=== PATIENT | female | born 1965 | race Caucasian/White ===

== ENCOUNTER 2024-06-17 13:57 | Observation (INO) ==
--- NOTE | 2024-06-17 14:12 | Emergency Department Note ---
HPI - General Adult General Chief complaint: Upper Respiratory Infection Stated complaint: Shortness of Breath, Wheezing Time Seen by Provider: 06/17/24 14:05 Source: patient Mode of arrival: walk-in Limitations: no limitations History of Present Illness HPI narrative: This is a 59 year old female patient that presents to the ER with c/o cough, wheezing and SOB with a hx of COPD. Patient states she was on antibiotics and steroids a couple weeks ago and saw her PCP for the same this week and was given allergy medication. Patient denies any chest pain, back pain, abdominal pain, fever, chills, numbness, tingling, weakness or N/V/D Exacerbating factors: Reports none Associated symptoms: Reports cough and shortness of breath Treatments prior to arrival: Reports none Related Data Home Medications Medication Instructions Recorded Confirmed albuterol sulfate 90 mcg/actuation 2 puff inhalation Q4H PRN 10/25/23 02/13/24 aerosol inhaler (Ventolin HFA) shortness of breath or wheezing fluticasone 250 mcg-salmeterol 50 1 inh inhalation BID 01/16/24 02/13/24 mcg/dose blistr powdr for inhalation (Advair Diskus) Previous Rx's Medication Instructions Recorded acetaminophen 325 mg tablet 650 mg (2 x 325 mg) PO Q4H PRN 02/17/24 Pain #30 tabs budesonide 0.5 mg/2 mL suspension 1 mg (4 mL) inhalation RBID 02/17/24 for nebulization pneumonia #4 mL benzonatate 200 mg capsule 200 mg PO BID PRN cough #7 caps 04/30/24 prednisone 20 mg tablet 20 mg PO DAILY SOB #5 tabs 04/30/24 Allergies Allergy/AdvReac Type Severity Reaction Status Date / Time No Known Drug Allergies Allergy Verified 06/17/24 14:16 Review of Systems Status of ROS 10 or more systems reviewed and unremark able except as noted in history and below Constitutional Denies: fever, chills, change in weight, fatigue, malaise or night sweats Eyes Denies: change in vision, blurry vision, blind spots or light sensitivity Ears, nose, mouth, and throat Denies: throat pain, neck pain, throat swelling, difficulty swallowing, hoarseness, mouth pain or swelling of lips/tongue Cardiovascular Reports: shortness of breath with exertion; Denies: chest pain, palpitations, edema, swelling of feet/ankles, lightheadedness, shortness of breath when lying down, leg pain with exertion or bluish discoloration of hands/feet Respiratory Reports: shortness of breath, cough, wheezing and chest congestion; Denies: stridor, pain on inspiration, change in phlegm color or coughing up blood Gastrointestinal Denies: abdominal pain, nausea, vomiting, coffee grounds in vomit, heartburn, diarrhea, constipation, bloating, difficulty swallowing, feeling full early, change in bowel habits, painful bowel movements or rectal pain Genitourinary Denies: painful urination, urinary frequency, urinary urgency, urinary incontinence, blood in urine, difficulty voiding, painful menstruation, vaginal bleeding, irregular period or change in menstrual flow Musculoskeletal Denies: back pain, neck pain, extremity pain, extremity swelling, joint pain or limited range of motion Integumentary/Breast Denies: rash, itching, redness, skin pain, skin tenderness, skin swelling or sores Neurological Denies: headache, numbness in extremities, weakness in extremities, lack of coordination, dizziness or vertigo Psychiatric Denies: anxiety, mood swings, panic attacks, change in sleep pattern, hopelessness or loss of interest Endocrine Denies: excessive urination, excessive thirst, fatigue, cold intolerance, excessive sweating or flushing Hematologic/Lymphatic Denies: easy bruising, easy bleeding or enlarged lymph nodes Allergic/Immunologic Denies: hives, throat swelling, tongue swelling, facial swelling, wheezing or itchy eyes PFSH PFSH Medical History Hypertension On home O2 Bronchitis COPD (chronic obstructive pulmonary disease) Asthma Surgical History Hx of tubal ligation History of cholecystectomy Social History Smoking status: never smoker Within the past year, how often did you have a drink containing alcohol: never Score interpretation: A score less than 3 is consistent with normal alcohol consumption. Non-prescribed substance use: denies use Problems where you live: no known problems Highest level of school completed/degree received: decline to answer Feel stressed/tense/nervous/anxious/difficulty sleeping: not at all Due to disability, difficulty making decisions: No Exam Constitutional: normal general appearance and no apparent distress Vital Signs - 24 hr 06/17/24 14:05 06/17/24 14:27 Temperature 98.7 F Pulse Rate 96 H Respiratory Rate 18 Blood Pressure 166/79 Pulse Oximetry 95 96 Oxygen Delivery Me thod Room Air HENMT: normocephalic, head/scalp atraumatic, hearing grossly normal bilaterally, external ears normal, EACs normal, nasal mucous membranes normal, external nose normal, oral mucous membranes normal and oropharynx normal Eyes: PERRL, EOMs intact bilaterally, conjunctivae normal and no scleral icterus Neck/C-Spine: visual inspection normal and trachea midline Lymph: no lymphadenopathy noted Chest: inspection of chest normal and palpation of chest normal Respiratory: breath sounds equal bilaterally, normal respiratory effort, clear to auscultation bilaterally, no wheezes, no rales, no retractions, no use of accessory muscles and chest percussion normal Cardiovascular: normal heart rate noted, regular rhythm noted, no gallop, no rub, no murmur, no JVD, no clicks, peripheral pulses 2+ throughout and no additional abnormal heart sounds Gastrointestinal: abdomen normal to inspection, abdomen soft to palpation, nontender to palpation, nontender to percussion, nondistended, normoactive bowel sounds, no hepatosplenomegaly, no masses, no pulsatile mass, no ascites and no hernia Genitourinary: no CVA tenderness Back/Pelvis: spine normal to inspection Extremities: normal to inspection, normal to palpation, no tenderness, full ROM, no joint enlargement and no deformity Neurology: cold saw operator II-XII intact, no movement abnormality noted, no focal motor deficit noted, no sensory deficits noted, gait normal, speech normal, coordination normal, no pronator drift noted, no fasciculations noted and GCS normal Psychiatry: mental status grossly normal, oriented x3, thought process normal, cooperative and affect normal Skin: skin color normal Course Course Hospital Course: 1452: walking O2 sats 91-92%RA 1534: due to the need for O2 to keep O2 sats greater than 92% will admit patient to the hospital. VSS, no s/s of acute distress noted Vital Signs Vital signs: Vital Signs Temperature 98.7 F 06/17/24 14:05 Pulse Rate 96 H 06/17/24 14:05 Respiratory Rate 18 06/17/24 14:05 Blood Pressure 166/79 06/17/24 14:05 Pulse Oximetry 95 06/17/24 14:05 Oxygen Delivery Method Room Air 06/17/24 14:05 Temperature 98.7 F 06/17/24 14:05 Pulse Rate 96 H 06/17/24 14:05 Respiratory Rate 18 06/17/24 14:05 Blood Pressure 166/79 06/17/24 14:05 Pulse Oximetry 96 06/17/24 14:27 Oxygen Delivery Method Room Air 06/17/24 14:05 Medical Decision Making Differential Diagnosis Differential Diagnosis: viral illness, URI, bronchitis Medical Records Medical records reviewed: Yes I reviewed the patient's medical records Lab Data Lab results reviewed: Yes I reviewed the patient's lab results Labs: Lab Results 06/17/24 Range/Units 14:30 WBC 13.3 H (4.3-9.3) K/uL RBC 5.1 (4.00-5.50) M/uL Hgb 10.4 L (12.5-15.8) gm/dL Hct 33.6 L (35.9-46.7) % MCV 66.5 L (81.0-93.7) fl MCH 20.6 L (27.6-32.2) pg MCHC 31.0 L (33.1-35.3) g/dl RDW 18.7 H (11.4-14.2) % Plt Count 275 (152-353) K/uL MPV 7.6 (6.9-10.8) fl Gran % 72.6 H (47.8-71.3) % Lymph % (Auto) 15.8 L (20.0-43.0) % [place] % (Auto) 8.4 (3.6-9.8) % Eos % (Auto) 2.4 (0.4-2.8) % Baso % (Auto) 0.8 (0.1-0.85) Lymph # (Auto) 2.1 (1.1-3.1) [place] # (Auto) 1.1 (1.1-3.1) Eos # (Auto) 0.3 H (0.0-0.2) Baso # (Auto) 0.1 (0.0-0.1) Absolute Gran (auto) 9.7 H (2.3-6.0) D-Dimer 209 (100-600) ng/mL Sodium 144 (136-145) mmol/L Potassium 4.4 (3.6-5.2) mmol/L Chloride 104.0 (98-107) mmol/L Carbon Dioxide 29 (21-32) mmol/L Anion Gap 11.0 (4-14) mEq/L BUN 10 (7-18) mg/dL Creatinine 0.7 (0.6-1.3) mg/dL Estimated GFR 99.0 (>59.9) Glucose 128 H (70-110) mg/dL Calcium 8.7 (8.5-10.1) mg/dL Total Bilirubin 0.26 (0.0-1.0) mg/dL AST 10 L (15-37) U/L ALT 19 L (30-65) U/L Alkaline Phosphatase 183 H (50-136) U/L Troponin I High Sens <4.00 L (4.0-60.4) ng/L B-Natriuretic Peptide 6.1 (0-100) pg/mL Total Protein 7.1 (6.4-8.2) g/dL Albumin 3.4 (3.4-5.0) g/dL Influenza Type A Ag Negative (Negative) Influenza Type B Ag Negative (Negative) Imaging Data Chest x-ray: Attestation: I have reviewed the pertinent imaging results. My impression: CXR: + pneumonia ECG Data Attestation: I have reviewed the pertinent ECG results. Discharge Plan Discharge Patient Disposition: Admitted As Observation Condition: Stable Chief Complaint: Upper Respiratory Infection Clinical Impression: COPD (chronic obstructive pulmonary disease), Pneumonia, Cough Prescriptions: No Action fluticasone propion-salmeterol [Advair Diskus] 250-50 mcg/dose blister with device 1 inh INHALATION BID Patient Comments: USE 1 PUFF BY MOUTH TWICE DAILY albuterol sulfate [Ventolin HFA] 90 mcg/actuation HFA aerosol inhaler 2 puff INHALATION Q4H PRN (Reason: shortness of breath or wheezing) Patient Comments: USE 1 PUFF BY MOUTH EVERY 4 HOURS NEEDED SHORTNESS OF BREATH / COUGH acetaminophen 325 mg Tablet 650 mg PO Q4H PRN (Reason: Pain) Qty: 30 1RF budesonide 0.5 mg/2 mL Suspension For Nebulization 1 mg inhalation RBID Qty: 4 0RF benzonatate 200 mg capsule 200 mg PO BID PRN (Reason: cough) Qty: 7 0RF prednisone 20 mg tablet 20 mg PO DAILY Qty: 5 0RF Print Language: Croatian Referrals: Lili Sheriff [Primary Care Provider] - Time of Disposition: 15:37
[2024-06-17] MEDS: BUDESONIDE 0.5 MG/2 ML AMPUL.NEB INH ONE (14:25)
[2024-06-17] MEDS: IPRATROPIUM/ALBUTEROL SULFATE 3 ML AMPUL.NEB INH ONE (14:25)
[2024-06-17 14:38] LABS: Basophils #(Absolute) Auto 0.1 (0.0-0.1); Basophils%(Percent) Auto 0.8 (0.1-0.85); Eosinophils#(Absolute)Auto 0.3 (0.0-0.2); Eosinophils%(Percent) Auto 2.4 % (0.4-2.8); Granulocytes % - Auto 72.6 % (47.8-71.3); Granulocytes#(Absolute)- Auto 9.7 (2.3-6.0); Hematocrit 33.6 % (35.9-46.7); Mean Corpuscular Volume 66.5 fl (81.0-93.7); Monocytes #(Absolute)- Auto 1.1 (1.1-3.1); Monocytes %(Percent)- Auto 8.4 % (3.6-9.8); Platelet Count 275 K/uL (152-353); White Blood Count 13.3 K/uL (4.3-9.3)
[2024-06-17 14:45] LABS: Carbon Dioxide 29 mmol/L (21-32); Glucose 128 mg/dL (70-110); Potassium 4.4 mmol/L (3.6-5.2); Sodium 144 mmol/L (136-145)
[2024-06-17] MEDS ORDERED: AZITHROMYCIN 500 MG VIAL ONE (15:37)
[2024-06-17] MEDS ORDERED: 0.9 % SODIUM CHLORIDE 250 ML IV ONE (15:37)
[2024-06-17] MEDS ORDERED: 0.9 % SODIUM CHLORIDE MB+ 50 ML IV ONE (15:37)
[2024-06-17] MEDS ORDERED: CEFTRIAXONE SODIUM 1 GM VIAL ONE (15:37)
[2024-06-17] MEDS: CEFTRIAXONE SODIUM 1 GM in 0.9 % SODIUM CHLORIDE MB+ 50 ML IV STA (15:41)
[2024-06-17] MEDS: AZITHROMYCIN 500 MG 500 MG in 0.9 % SODIUM CHLORIDE 250 ML IV ONE (15:41)
[2024-06-17] MEDS ORDERED: bisacodyL 10 MG SUPP.RECT PR PRN (19:36)
[2024-06-17] MEDS ORDERED: MAGNESIUM, ALUMINUM HYDROXIDE 30 ML ORAL.SUSP PO PRN (19:36)
[2024-06-17] MEDS: IPRATROPIUM/ALBUTEROL SULFATE 3 ML AMPUL.NEB INH SCH (20:58)
[2024-06-18] MEDS: ACETAMINOPHEN 500 MG TABLET PO PRN (00:08)
[2024-06-18 05:37] LABS: Basophils #(Absolute) Auto 0.1 (0.0-0.1); Basophils%(Percent) Auto 0.7 (0.1-0.85); Eosinophils#(Absolute)Auto 0.4 (0.0-0.2); Eosinophils%(Percent) Auto 3.5 % (0.4-2.8); Granulocytes % - Auto 71.2 % (47.8-71.3); Granulocytes#(Absolute)- Auto 8.1 (2.3-6.0); Hematocrit 29.6 % (35.9-46.7); Mean Corpuscular Volume 67.1 fl (81.0-93.7); Monocytes #(Absolute)- Auto 0.9 (1.1-3.1); Monocytes %(Percent)- Auto 7.6 % (3.6-9.8); Platelet Count 260 K/uL (152-353); White Blood Count 11.3 K/uL (4.3-9.3)
[2024-06-18 06:13] LABS: Potassium 4.1 mmol/L (3.6-5.2)
[2024-06-18] MEDS: METHYLPREDNISOLONE SOD SUCC/PF 40 MG/ML VIAL INJ SCH (08:57)
--- NOTE | 2024-06-18 10:40 | Internal Medicine H&P ---
Internal Medicine - H&P: HPI History of Present Illness Chief complaint: COPD EXACERBATION, PNEUMONIA Narrative: To ER from home due to worsening dyspnea and cough. Mildly hypoxic in ER and already weaned off O2. Cough is not productive and chronic. Slightly better this AM. Review of Systems Status of ROS 10 or more systems reviewed and unremark able except as noted in history and below Constitutional Denies: fever, chills, change in weight, fatigue, malaise or night sweats Eyes Denies: change in vision, blurry vision, blind spots or light sensitivity Ears, nose, mouth, and throat Denies: throat pain, neck pain, throat swelling, difficulty swallowing, hoarseness, mouth pain, swelling of lips/tongue or vertigo Cardiovascular Reports: shortness of breath with exertion; Denies: chest pain, palpitations, edema, swelling of feet/ankles, lightheadedness, shortness of breath when lying down, leg pain with exertion or bluish discoloration of hands/feet Respiratory Reports: shortness of breath, cough and chest congestion; Denies: wheezing, stridor, pain on inspiration, change in phlegm color or coughing up blood Gastrointestinal Denies: abdominal pain, nausea, vomiting, coffee grounds in vomit, heartburn, diarrhea, constipation, bloating, difficulty swallowing, feeling full early, change in bowel habits, painful bowel movements or rectal pain Genitourinary Denies: painful urination, urinary frequency, urinary urgency, urinary incontinence, blood in urine, difficulty voiding, painful menstruation, vaginal bleeding, irregular period or change in menstrual flow Musculoskeletal Denies: back pain, neck pain, extremity pain, extremity swelling, joint pain or limited range of motion Integumentary/Breast Denies: rash, itching, redness, skin pain, skin tenderne ss, skin swelling or sores Neurological Denies: headache, numbness in extremities, weakness in extremities, lack of coordination, dizziness or vertigo Psychiatric Denies: anxiety, mood swings, panic attacks, change in sleep pattern, hopelessness or loss of interest Endocrine Denies: excessive urination, excessive thirst, fatigue, cold intolerance, excessive sweating or flushing Hematologic/Lymphatic Denies: easy bruising, easy bleeding or enlarged lymph nodes Allergic/Immunologic Denies: hives, throat swelling, tongue swelling, facial swelling, wheezing or itchy eyes [facility] Medical History (Updated 06/18/24 @ 13:15 by Kenn Walter MD) Hypertension On home O2 Bronchitis COPD (chronic obstructive pulmonary disease) Asthma Surgical History Hx of tubal ligation History of cholecystectomy Social History Smoking status: never smoker Within the past year, how often did you have a drink containing alcohol: never Score interpretation: A score less than 3 is consistent with normal alcohol consumption. Non-prescribed substance use: denies use Problems where you live: no known problems Highest level of school completed/degree received: high school Feel stressed/tense/nervous/anxious/difficulty sleeping: not at all Due to disability, difficulty making decisions: No Meds Home Medications and Allergies Home Medications Medication Instructions Recorded Confirmed Type albuterol sulfate 90 mcg/actuation 2 puff inhalation Q4H PRN 10/25/23 02/13/24 History aerosol inhaler (Ventolin HFA) shortness of breath or wheezing fluticasone 250 mcg-salmeterol 50 1 inh inhalation BID 01/16/24 02/13/24 History mcg/dose blistr powdr for inhalation (Advair Diskus) acetaminophen 325 mg tablet 650 mg (2 x 325 mg) PO Q4H PRN 02/17/24 Rx Pain #30 tabs budesonide 0.5 mg/2 mL suspension 1 mg (4 mL) inhalation RBID 02/17/24 Rx for nebulization pneumonia #4 mL benzonatate 200 mg capsule 200 mg PO BID PRN cough #7 caps 04/30/24 Rx prednisone 20 mg tablet 20 mg PO DAILY SOB #5 tabs 04/30/24 Rx Allergies Allergy/AdvReac Type Severity Reaction Status Date / Time No Known Drug Allergies Allergy Verified 06/17/24 14:16 Exam Constitutional: normal general appearance, no apparent distress, abnormal body habitus (obese), no limitations and alert Vital Signs - 24 hr 06/17/24 14:05 06/17/24 14:27 06/17/24 15:00 Temperature 98.7 F Pulse Rate 96 H 102 H Pulse Rate [Right Radial] Respiratory Rate 18 18 Blood Pressure 166/79 138/74 Blood Pressure [Ri ght Arm] Pulse Oximetry 95 96 92 L Oxygen Delivery Me thod Room Air Room Air Oxygen Flow Rate 06/17/24 16:00 06/17/24 17:00 06/17/24 18:00 Temperature Pulse Rate 97 H 113 H 95 H Pulse Rate [Right Radial] Respiratory Rate 18 18 17 Blood Pressure 132/78 137/57 139/70 Blood Pressure [Ri ght Arm] Pulse Oximetry 100 100 98 Oxygen Delivery Me thod Nasal Cannula Nasal Cannula Nasal Cannula Oxygen Flow Rate 2 2 2 06/17/24 19:00 06/17/24 19:30 06/17/24 19:37 Temperature 98.7 F Pulse Rate 87 87 Pulse Rate [Right Radial] Respiratory Rate 18 18 Blood Pressure 152/86 152/86 Blood Pressure [Ri ght Arm] Pulse Oximetry 99 99 Oxygen Delivery Me thod Nasal Cannula Nasal Cannula Oxygen Flow Rate 2 2 06/17/24 20:00 06/17/24 20:58 06/17/24 20:58 Temperature 98.2 F Pulse Rate Pulse Rate [Right Radial] 83 Respiratory Rate 20 Blood Pressure Blood Pressure [Ri ght Arm] 148/73 Pulse Oximetry 100 99 98 Oxygen Delivery Me thod Nasal Cannula Nasal Cannula Oxygen Flow Rate 2 2 06/17/24 23:40 06/18/24 03:50 06/18/24 07:30 Temperature 98.3 F 98.3 F Pulse Rate Pulse Rate [Right Radial] 86 71 Respiratory Rate 19 18 Blood Pressure Blood Pressure [Ri ght Arm] 119/66 127/83 Pulse Oximetry 97 98 93 L Oxygen Delivery Me thod Nasal Cannula Nasal Cannula Oxygen Flow Rate 2 2 06/18/24 08:00 Temperature 97.5 F L Pulse Rate Pulse Rate [Right Radial] 86 Respiratory Rate 21 Blood Pressure Blood Pressure [Ri ght Arm] 147/71 Pulse Oximetry 99 Oxygen Delivery Me thod Room Air Oxygen Flow Rate HENMT: normocephalic, head/scalp atraumatic, hearing grossly normal bilaterally, external ears normal, oral mucous membranes normal and oropharynx abnormal (+PND) Eyes: PERRL, EOMs intact bilaterally and conjunctivae normal Neck/C-Spine: visual inspection normal, trachea midline and cervical full ROM noted Respiratory: breath sounds equal bilaterally, normal respiratory effort, auscultation abnormal (diminished breath sound) and no wheezes Cardiovascular: normal heart rate noted, regular rhythm noted and no murmur Gastrointestinal: abdomen soft to palpation, nontender to palpation, nondistended and normoactive bowel sounds Back/Pelvis: thoracic spine ROM normal and lumbar spine ROM normal Extremities: normal to inspection, normal to palpation, no tenderness and full ROM Neurology: no movement abnormality noted, no focal motor deficit noted, speech normal and no fasciculations noted Psychiatry: mental status grossly normal, oriented x3, thought process normal, cooperative, affect abnormality noted (anxious), psychomotor activity normal and memory normal Internal Medicine - H&P: Reslt Labs Labs: CBC WBC 11.3 K/uL (4.3-9.3) H 06/18/24 04:30 RBC 4.4 M/uL (4.00-5.50) 06/18/24 04:30 Hgb 9.2 gm/dL (12.5-15.8) L 06/18/24 04:30 Hct 29.6 % (35.9-46.7) L 06/18/24 04:30 MCV 67.1 fl (81.0-93.7) L 06/18/24 04:30 MCH 20.9 pg (27.6-32.2) L 06/18/24 04:30 MCHC 31.2 g/dl (33.1-35.3) L 06/18/24 04:30 RDW 18.8 % (11.4-14.2) H 06/18/24 04:30 Plt Count 260 K/uL (152-353) 06/18/24 04:30 MPV 7.9 fl (6.9-10.8) 06/18/24 04:30 Gran % 71.2 % (47.8-71.3) 06/18/24 04:30 Lymph % (Auto) 17.0 % (20.0-43.0) L 06/18/24 04:30 [place] % (Auto) 7.6 % (3.6-9.8) 06/18/24 04:30 Eos % (Auto) 3.5 % (0.4-2.8) H 06/18/24 04:30 Baso % (Auto) 0.7 (0.1-0.85) 06/18/24 04:30 Lymph # (Auto) 1.9 (1.1-3.1) 06/18/24 04:30 [place] # (Auto) 0.9 (1.1-3.1) L 06/18/24 04:30 Eos # (Auto) 0.4 (0.0-0.2) H 06/18/24 04:30 Baso # (Auto) 0.1 (0.0-0.1) 06/18/24 04:30 Absolute Gran (auto) 8.1 (2.3-6.0) H 06/18/24 04:30 BMP Sodium 141 mmol/L (136-145) 06/18/24 04:30 Potassium 4.1 mmol/L (3.6-5.2) 06/18/24 04:30 Chloride 107.0 mmol/L (98-107) 06/18/24 04:30 Carbon Dioxide 30 mmol/L (21-32) 06/18/24 04:30 Anion Gap 4.0 mEq/L (4-14) 06/18/24 04:30 BUN 8 mg/dL (7-18) 06/18/24 04:30 Creatinine 0.5 mg/dL (0.6-1.3) L 06/18/24 04:30 Estimated GFR 107.3 (>59.9) 06/18/24 04:30 Glucose 137 mg/dL (70-110) H 06/18/24 04:30 Calcium 8.6 mg/dL (8.5-10.1) 06/18/24 04:30 Total Bilirubin 0.26 mg/dL (0.0-1.0) 06/18/24 04:30 AST 13 U/L (15-37) L 06/18/24 04:30 ALT 17 U/L (30-65) L 06/18/24 04:30 Alkaline Phosphatase 163 U/L (50-136) H 06/18/24 04:30 Total Protein 6.4 g/dL (6.4-8.2) 06/18/24 04:30 Albumin 3.0 g/dL (3.4-5.0) L 06/18/24 04:30 Cardiac Enzymes Troponin I High Sens <4.00 ng/L (4.0-60.4) L 06/17/24 14:30 Liver Function Total Bilirubin 0.26 mg/dL (0.0-1.0) 06/18/24 04:30 AST 13 U/L (15-37) L 06/18/24 04:30 ALT 17 U/L (30-65) L 06/18/24 04:30 Alkaline Phosphatase 163 U/L (50-136) H 06/18/24 04:30 Total Protein 6.4 g/dL (6.4-8.2) 06/18/24 04:30 Albumin 3.0 g/dL (3.4-5.0) L 06/18/24 04:30 Assessment and Plan Assessment and Plan (1) COPD exacerbation: Code(s): J44.1 - Chronic obstructive pulmonary disease with (acute) exacerbation (2) Respiratory failure with hypoxia and hypercapnia: Qualifiers: Chronicity: acute on chronic Qualified Code(s): J96.21 - Acute and chronic respiratory failure with hypoxia; J96.22 - Acute and chronic respiratory failure with hypercapnia Code(s): J96.91 - Respiratory failure, unspecified with hypoxia; J96.92 - Respiratory failure, unspecified with hypercapnia Plan Continue nebs and inhalers, steroids, abx, and cough meds. Plan for discharge home tomorrow.
[2024-06-18] MEDS ORDERED: BENZONATATE 100 MG CAPSULE PO PRN (12:10)
[2024-06-18] MEDS: CEFTRIAXONE SODIUM 1 GM in 0.9 % SODIUM CHLORIDE MB+ 50 ML IV SCH (15:45)
[2024-06-18] MEDS: AZITHROMYCIN 500 MG 500 MG in 0.9 % SODIUM CHLORIDE 250 ML IV SCH (16:33)
[2024-06-19 08:20] VITALS: BP 146/70; PULSE 91; RESP 19; TEMP 97.7
--- NOTE | 2024-06-19 08:27 | Discharge Summary ---
DS: Providers Provider Date of admission: 06/17/24 15:43 Primary care physician: Lili Sheriff Admitting clinician: Michelle Castaneda Attending physician on admission: Linda Griggs Attending physician on discharge: Kenn Walter Discharging clinician: Kenn Walter Anticipated date of discharge: 06/19/24 DS: Diagnosis Discharge Diagnosis (1) COPD exacerbation: (2) Respiratory failure with hypoxia and hypercapnia: Qualifiers: Chronicity: acute on chronic Qualified Code(s): J96.21 - Acute and chronic respiratory failure with hypoxia; J96.22 - Acute and chronic respiratory failure with hypercapnia Plan Discharge home with steroids and abx. Has O2, nebs, and inhalers at home. DS: Summary Hospital Course Hospital Course: Pt steadily improved on nebs, inhalers, supplemental O2, and IV steroids/abx. Cough still present, but seems to be PND. Has f/u with PCP. Status at Discharge Functional status at discharge: independent ambulation Overall status at discharge: patient is back to baseline Time Spent with Patient Time attestation: Total time spent providing and/or coordinating discharge services: Time spent: less than 30 minutes Exam Constitutional: normal general appearance, no apparent distress, abnormal body habitus (obese), no limitations and alert Vital Signs - 24 hr 06/18/24 11:11 06/18/24 12:00 06/18/24 15:15 Temperature 98.9 F Pulse Rate [Right Radial] 92 H Respiratory Rate 21 Blood Pressure [Ri ght Arm] 138/61 Pulse Oximetry 92 L 90 L 95 Oxygen Delivery Me thod Room Air Oxygen Flow Rate Fraction of Inspir ed Oxygen 06/18/24 16:00 06/18/24 20:00 06/18/24 20:10 Temperature 98.2 F 97.7 F Pulse Rate [Right Radial] 90 98 H Respiratory Rate 20 18 Blood Pressure [Ri ght Arm] 140/64 145/63 Pulse Oximetry 96 90 L 98 Oxygen Delivery Me thod Nasal Cannula Room Air Oxygen Flow Rate 2 Fraction of Inspir ed Oxygen 06/18/24 20:10 06/19/24 00:00 06/19/24 00:36 Temperature 98.3 F Pulse Rate [Right Radial] 74 Respiratory Rate 18 Blood Pressure [Ri ght Arm] 120/54 Pulse Oximetry 97 99 Oxygen Delivery Me thod Nasal Cannula Room Air Oxygen Flow Rate 2 Fraction of Inspir ed Oxygen 28 06/19/24 04:00 06/19/24 07:30 06/19/24 08:00 Temperature 97.8 F 97.7 F Pulse Rate [Right Radial] 75 91 H Respiratory Rate 16 19 Blood Pressure [Ri ght Arm] 128/54 146/70 Pulse Oximetry 98 93 L 97 Oxygen Delivery Me thod Room Air Oxygen Flow Rate Fraction of Inspir ed Oxygen HENMT: normocephalic, head/scalp atraumatic, hearing grossly normal bilaterally and external ears normal Eyes: PERRL, EOMs intact bilaterally and conjunctivae normal Neck/C-Spine: visual inspection normal, trachea midline and cervical full ROM noted Respiratory: breath sounds equal bilaterally, normal respiratory effort and wheezing noted (expiratory wheezes) Cardiovascular: normal heart rate noted, regular rhythm noted and no murmur Gastrointestinal: abdomen soft to palpation, nontender to palpation, nondistended and normoactive bowel sounds Back/Pelvis: thoracic spine ROM normal and lumbar spine ROM normal Extremities: normal to inspection, normal to palpation, no tenderness and full ROM Neurology: ell tutor II-XII intact, no focal motor deficit noted, speech normal, no fasciculations noted and GCS normal Psychiatry: mental status grossly normal, oriented x3, thought process normal, cooperative, affect normal, psychomotor activity normal and memory normal Discharge Plan Discharge Disposition: Home, Self-Care Condition: Stable Discharge Medications: New doxycycline hyclate 100 mg capsule 100 mg PO BID Qty: 10 0RF dexamethasone 4 mg tablet 4 mg PO DAILY Qty: 5 0RF ipratropium bromide 21 mcg (0.03 %) spray,non-aerosol 2 spray intranasal BID Qty: 30 0RF Rx Instructions: administer into each nostril Continued fluticasone propion-salmeterol [Advair Diskus] 250-50 mcg/dose blister with device 1 inh INHALATION BID Patient Comments: USE 1 PUFF BY MOUTH TWICE DAILY albuterol sulfate [Ventolin HFA] 90 mcg/actuation HFA aerosol inhaler 2 puff INHALATION Q4H PRN (Reason: shortness of breath or wheezing) Patient Comments: USE 1 PUFF BY MOUTH EVERY 4 HOURS NEEDED SHORTNESS OF BREATH / COUGH acetaminophen 325 mg Tablet 650 mg PO Q4H PRN (Reason: Pain) Qty: 30 1RF benzonatate 200 mg capsule 200 mg PO BID PRN (Reason: cough) Qty: 7 0RF lisinopril-hydrochlorothiazide 20-25 mg tablet 1 tab PO DAILY Patient Comments: TAKE ONE TABLET BY MOUTH ONCE DAILY IN THE MORNING montelukast 10 mg tablet 10 mg PO DAILY Patient Comments: TAKE ONE TABLET BY MOUTH EVERY DAY fexofenadine-pseudoephedrine [Tika-D 12 Hour] 60-120 mg tablet extended release 12 hr 1 tab PO BID PRN (Reason: nasal congestion) Patient Comments: TAKE ONE TABLET BY MOUTH TWICE DAILY FOR 5 DAYS NEEDED fluticasone propionate 50 mcg/actuation spray,suspension 1 spray INTRANASAL BID Patient Comments: INSTILL 1 SPRAY INTO EACH NOSTRIL TWICE DAILY Discharge Orders: Discharge Order (Routine); Ordered 06/19/24 Ordered By: Kenn Walter Activity: increase activity as tolerated Diet: advance to your usual diet Interventions: Discharge Assessment Last Done: 06/19/24 08:44 MED/SURG & ICU Observation Charge Sheet Last Done: 06/18/24 15:43 Patient Instructions: COPD (Chronic Obstructive Pulmonary Disease) (GEN), Chronic Cough (GEN) Forms: Portal/Health Info Access Inst Follow-Ups: Lili Sheriff [Primary Care Provider] - Discharge Date/Time: 06/19/24 09:16
== END 2024-06-19 09:16 | disposition home or self-care (01) ==
LOC: MS 13:57 → ED 13:57 → MS 19:30
PROVIDERS: ADMIT Family Medicine; ATTEND Family Medicine

== ENCOUNTER 2024-08-09 16:53 | Inpatient (IN) ==
--- NOTE | 2024-08-09 17:12 | Emergency Department Note ---
HPI - Abdominal Pain General Chief Complaint: Abdominal Pain Stated Complaint: vomiting, abd pain & swelling, upper back pain Related Data Home Medications Medication Instructions Recorded Confirmed albuterol sulfate 90 mcg/actuation 2 puff inhalation Q4H PRN 10/25/23 08/01/24 aerosol inhaler (Ventolin HFA) shortness of breath or wheezing fluticasone 250 mcg-salmeterol 50 1 inh inhalation BID 01/16/24 08/01/24 mcg/dose blistr powdr for inhalation (Advair Diskus) fexofenadine 60 mg-pseudoephedrine 1 tab PO BID PRN nasal congestion 06/18/24 08/01/24 ER 120 mg tablet,ext.release,12 hr (Tika-D 12 Hour) fluticasone propionate 50 1 spray intranasal BID 06/18/24 08/01/24 mcg/actuation nasal spray,suspension lisinopril 20 1 tab PO DAILY 06/18/24 08/01/24 mg-hydrochlorothiazide 25 mg tablet montelukast 10 mg tablet 10 mg PO DAILY 06/18/24 08/01/24 Previous Rx's Medication Instructions Recorded acetaminophen 325 mg tablet 650 mg (2 x 325 mg) PO Q4H PRN 02/17/24 Pain #30 tabs benzonatate 200 mg capsule 200 mg PO BID PRN cough #7 caps 04/30/24 dexamethasone 4 mg tablet 4 mg PO DAILY COPD #5 tabs 06/19/24 doxycycline hyclate 100 mg capsule 100 mg PO BID COPD #10 caps 06/19/24 ipratropium bromide 21 mcg (0.03 2 spray intranasal BID allergies 06/19/24 %) nasal spray #30 mL Allergies Allergy/AdvReac Type Severity Reaction Status Date / Time No Known Drug Allergies Allergy Verified 08/09/24 17:17 [facility] Medical History Hypertension On home O2 Bronchitis COPD (chronic obstructive pulmonary disease) Asthma Surgical History Hx of tubal ligation History of cholecystectomy Social History Smoking status: never smoker Within the past year, how often did you have a drink containing alcohol: never Within the past year, how often did you have six or more drinks on one occasion: never Score interpretation: A score less than 3 is consistent with normal alcohol consumption. Non-prescribed substance use: denies use Problems where you live: no known problems Highest level of school completed/degree received: high school Feel stressed/tense/nervous/anxious/difficulty sleeping: not at all Due to disability, difficulty making decisions: No Exam Constitutional: Vital Signs - 24 hr 08/09/24 17:00 08/09/24 17:50 08/09/24 17:50 Temperature 98.1 F Pulse Rate 125 H 110 H Respiratory Rate 22 20 Blood Pressure 149/80 144/76 Pulse Oximetry 90 L 94 L 94 L Oxygen Delivery Me thod Room Air Nasal Cannula Nasal Cannula Oxygen Flow Rate 2 2 Course Vital Signs Vital signs: Vital Signs Temperature 98.1 F 08/09/24 17:00 Pulse Rate 125 H 08/09/24 17:00 Respiratory Rate 22 08/09/24 17:00 Blood Pressure 149/80 08/09/24 17:00 Pulse Oximetry 90 L 08/09/24 17:00 Oxygen Delivery Method Room Air 08/09/24 17:00 Temperature 98.1 F 08/09/24 17:00 Pulse Rate 110 H 08/09/24 17:50 Respiratory Rate 20 08/09/24 17:50 Blood Pressure 144/76 08/09/24 17:50 Pulse Oximetry 94 L 08/09/24 17:50 Oxygen Delivery Method Nasal Cannula 08/09/24 17:50 Oxygen Flow Rate 2 08/09/24 17:50 MDM - Abdominal Pain Differential Diagnosis Differential diagnosis: Likely abdominal pain, acute appendicitis, calculus of kidney, constipation, diverticulitis, gastroenteritis, pancreatitis and small bowel obstruction Medical Records Attestation: I reviewed the patient's medical records. Lab Data Attestation: I reviewed the patient's lab results. Labs: Lab Results 08/09/24 Range/Units 17:20 WBC 23.3 H* (4.3-9.3) K/uL RBC 5.2 (4.00-5.50) M/uL Hgb 10.9 L (12.5-15.8) gm/dL Hct 35.4 L (35.9-46.7) % MCV 68.6 L (81.0-93.7) fl MCH 21.1 L (27.6-32.2) pg MCHC 30.8 L (33.1-35.3) g/dl RDW 19.9 H (11.4-14.2) % Plt Count 342 (152-353) K/uL MPV 7.9 (6.9-10.8) fl Gran % 89.6 H (47.8-71.3) % Lymph % (Auto) 4.1 L (20.0-43.0) % [place] % (Auto) 5.8 (3.6-9.8) % Eos % (Auto) 0.0 L (0.4-2.8) % Baso % (Auto) 0.5 (0.1-0.85) Lymph # (Auto) 1.0 L (1.1-3.1) [place] # (Auto) 1.3 (1.1-3.1) Eos # (Auto) 0.0 (0.0-0.2) Baso # (Auto) 0.1 (0.0-0.1) Absolute Gran (auto) 20.9 H (2.3-6.0) Hypochromia Slight (25-26) (None Seen) Platelet Estimate Normal (NormaL) Anisocytosis 1+ (Negative) Microcytosis Slight (75-79) (Negative) Sodium 138 (136-145) mmol/L Potassium 3.4 L (3.6-5.2) mmol/L Chloride 101.0 (98-107) mmol/L Carbon Dioxide 28 (21-32) mmol/L Anion Gap 9.0 (4-14) mEq/L BUN 13 (7-18) mg/dL Creatinine 0.9 (0.6-1.3) mg/dL Estimated GFR 73.2 (>59.9) Glucose 190 H (70-110) mg/dL Lactic Acid 3.4 H (0.27-1.43) mmol/L Calcium 9.0 (8.5-10.1) mg/dL Phosphorus 2.8 (2.5-4.9) mg/dL Magnesium 1.5 L (1.8-2.4) mg/dL Total Bilirubin 0.79 (0.0-1.0) mg/dL AST 14 L (15-37) U/L ALT 20 L (30-65) U/L Alkaline Phosphatase 150 H (50-136) U/L B-Natriuretic Peptide 18.1 (0-100) pg/mL Total Protein 7.3 (6.4-8.2) g/dL Albumin 3.5 (3.4-5.0) g/dL Lipase 16.0 (16.0-77.0) U/L Urine Color Yellow (STRAW/YELL.) Urine Appearance Hazy (CLEAR) Ur Specific [place] 1.020 (1.001-1.035) Urine Protein 1+ (NEGATIVE) Urine Glucose (UA) Normal (NORMAL) Urine Ketones Negative (NEGATIVE) Urine Occult Blood 2+ (NEG - TRACE) Urine Nitrite Negative (NEGATIVE) Urine Bilirubin Negative (NEGATIVE) Urine Urobilinogen Normal (NORMAL) Ur Leukocyte Esterase Negative (NEGATIVE) Urine RBC 10 - 25 (0 - 5) Urine WBC 0 - 2 ( 0 - 5) Ur Epithelial Cells Moderate (Few/HPF) Amorphous Sediment Negative (Negative) Urine Bacteria Few (Negative) Urine Mucus Negative (Negative) Urine Trichomonas Negative (Negative) Urine Yeast Negative (Negative) Fluid pH 6.0 (5 - 9) ABG Data Attestation: I have reviewed the pertinent ABG results. Imaging Data Imaging ordered: other (acute abdominal series) ECG Data Attestation: I have reviewed the pertinent ECG results. Prior ECG tracings: available for review Interpretation: EKG-sinus tachycardia, borderline right axillary axis deviation, rate 122, RR 492, MT 131 Discharge Plan Discharge Patient Disposition: Admitted As Observation Condition: Stable Clinical Impression: Pneumonia, Cough, Abdominal pain, Nausea & vomiting, Acute hypokalemia, Acute dehydration Time of Disposition: 19:00
[2024-08-09] MEDS ORDERED: 0.9 % SODIUM CHLORIDE 1000 ML 1,000 ML IV ONE (17:17)
[2024-08-09] MEDS: ONDANSETRON HCL/PF 4 MG/2 ML VIAL IVP ONE (17:24)
[2024-08-09] MEDS: 0.9 % SODIUM CHLORIDE 500 ML IV ONE (17:25)
[2024-08-09 17:36] LABS: White Blood Count 23.3 K/uL (4.3-9.3)
[2024-08-09 17:37] LABS: Granulocytes % - Auto 89.6 % (47.8-71.3); Granulocytes#(Absolute)- Auto 20.9 (2.3-6.0); Hematocrit 35.4 % (35.9-46.7); Mean Corpuscular Volume 68.6 fl (81.0-93.7); Monocytes #(Absolute)- Auto 1.3 (1.1-3.1); Monocytes %(Percent)- Auto 5.8 % (3.6-9.8); Platelet Count 342 K/uL (152-353); Potassium 3.4 mmol/L (3.6-5.2)
[2024-08-09 17:38] LABS: Basophils #(Absolute) Auto 0.1 (0.0-0.1); Basophils%(Percent) Auto 0.5 (0.1-0.85)
[2024-08-09 17:43] LABS: Urine Appearance HAZY (CLEAR); Urine Blood 2+ (NEG - TRACE); Urine Color YELLOW (STRAW/YELL.); Urine Urobilinogen Normal (NORMAL)
[2024-08-09 17:44] LABS: Urine Amorphous Sediment Negative (Negative); Urine Yeast Negative (Negative)
[2024-08-09 18:20] LABS: Anisocytosis 1+ (Negative); Hypochromia Slight (25-26) (None Seen)
[2024-08-09] MEDS ORDERED: POTASSIUM CHLORIDE 20 MEQ TAB.ER.PRT PO ONE (18:55)
[2024-08-09] MEDS: POTASSIUM CHLORIDE 20 MEQ TAB.ER.PRT PO ONE (18:56)
[2024-08-09] MEDS: levalbuterol HCL 1.25 MG/3 ML VIAL.NEB INH SCH (20:40)
[2024-08-09] MEDS ORDERED: DOCUSATE SODIUM 100 MG CAPSULE PO PRN (20:40)
[2024-08-09] MEDS ORDERED: MAGNESIUM HYDROXIDE 400 MG/5 ML ORAL.SUSP PO PRN (20:40)
[2024-08-09] MEDS: BUDESONIDE 0.5 MG/2 ML AMPUL.NEB INH SCH (20:53)
[2024-08-09] MEDS: 0.9 % SODIUM CHLORIDE 1000 ML 1,000 ML IV SCH (21:16)
[2024-08-09] MEDS: CEFTRIAXONE SODIUM 1 GM in 0.9 % SODIUM CHLORIDE MB+ 50 ML IV SCH (21:16)
[2024-08-09] MEDS: AZITHROMYCIN 500 MG 500 MG in 0.9 % SODIUM CHLORIDE 250 ML IV SCH (21:16)
[2024-08-09] MEDS ORDERED: MAGNESIUM SULFATE 1 GM/2 ML 3 GM in 0.9 % SODIUM CHLORIDE 100ML 100 ML IV ONE (21:30)
[2024-08-09] MEDS: ACETAMINOPHEN 500 MG TABLET PO PRN (21:44)
[2024-08-09] MEDS: MAGNESIUM SULFATE 1 GM/2 ML 3 GM in 0.9 % SODIUM CHLORIDE 100ML 100 ML IV ONE (22:34)
[2024-08-10] MEDS: POTASSIUM CHLORIDE 20 MEQ TAB.ER.PRT PO ONE (04:29)
[2024-08-10 07:02] LABS: Basophils #(Absolute) Auto 0.1 (0.0-0.1); Basophils%(Percent) Auto 0.4 (0.1-0.85); Eosinophils%(Percent) Auto 0.1 % (0.4-2.8); Granulocytes % - Auto 86.6 % (47.8-71.3); Granulocytes#(Absolute)- Auto 15.3 (2.3-6.0); Hematocrit 34.3 % (35.9-46.7); Mean Corpuscular Volume 71.1 fl (81.0-93.7); Monocytes #(Absolute)- Auto 1.2 (1.1-3.1); Monocytes %(Percent)- Auto 6.6 % (3.6-9.8); Platelet Count 257 K/uL (152-353); White Blood Count 17.7 K/uL (4.3-9.3)
[2024-08-10 07:11] LABS: Potassium 4.1 mmol/L (3.6-5.2)
[2024-08-10] MEDS: levalbuterol HCL 1.25 MG/3 ML VIAL.NEB ONE (08:23)
[2024-08-10] MEDS: PANTOPRAZOLE SODIUM 40 MG TABLET.DR PO SCH (09:22)
--- NOTE | 2024-08-10 12:40 | History & Physical Report ---
H&P: HPI History of Present Illness Chief complaint: PNEUMONIA,HYPOKALEMIA,DEHYDRATION,LACTIC ACIDOSIS Narrative: Ms. Trevino was admitted on 08/09/24 from the ED with a complaint of SOB for 4-5 days with occasional vomiting,. She believes she might have had fever, sick contact includes son with GI issues. She does complain of R sided chest pain as well when taking deep breaths. She uses 2L NC at home and states compliance with her medications. WBC elevated at 23 on admit and to 17 this morning. Potassium has corrected. CXR indicative of PNA Review of Systems Status of ROS 10 or more systems reviewed and unremark able except as noted in history and below Constitutional Reports: fever Cardiovascular Reports: chest pain Respiratory Reports: shortness of breath, wheezing, pain on inspiration and change in phlegm color [facility] Medical History (Updated 08/10/24 @ 12:52 by Srinivasa Bedolla NP) Hypertension On home O2 Bronchitis COPD (chronic obstructive pulmonary disease) Asthma Surgical History Hx of tubal ligation History of cholecystectomy Social History Smoking status: never smoker Within the past year, how often did you have a drink containing alcohol: never Within the past year, how often did you have six or more drinks on one occasion: never Score interpretation: A score less than 3 is consistent with normal alcohol consumption. Non-prescribed substance use: denies use Problems where you live: no known problems Highest level of school completed/degree received: high school Feel stressed/tense/nervous/anxious/difficulty sleeping: not at all Due to disability, difficulty making decisions: No Meds Home Medications and Allergies Home Medications Medication Instructions Recorded Confirmed Type albuterol sulfate 90 mcg/actuation 2 puff inhalation Q4H PRN 10/25/23 08/10/24 History aerosol inhaler (Ventolin HFA) shortness of breath or wheezing fluticasone 250 mcg-salmeterol 50 1 inh inhalation BID 01/16/24 08/10/24 History mcg/dose blistr powdr for inhalation (Advair Diskus) acetaminophen 325 mg tablet 650 mg (2 x 325 mg) PO Q4H PRN 02/17/24 08/10/24 Rx Pain #30 tabs fluticasone propionate 50 1 spray intranasal BID 06/18/24 08/10/24 History mcg/actuation nasal spray,suspension lisinopril 20 1 tab PO DAILY 06/18/24 08/10/24 History mg-hydrochlorothiazide 25 mg tablet montelukast 10 mg tablet 10 mg PO DAILY 06/18/24 08/10/24 History ipratropium bromide 21 mcg (0.03 2 spray intranasal BID allergies 06/19/24 08/10/24 Rx %) nasal spray #30 mL Allergies Allergy/AdvReac Type Severity Reaction Status Date / Time No Known Drug Allergies Allergy Verified 08/09/24 17:17 Exam Exam: Patient in bed in no acute distress. Does report chest pain on inspiration. Constitutional: Vital Signs - 24 hr 08/09/24 17:00 08/09/24 17:50 08/09/24 17:50 Temperature 98.1 F Pulse Rate 125 H 110 H Pulse Rate [Bilate ral] Respiratory Rate 22 20 Blood Pressure 149/80 144/76 Blood Pressure [Le ft Arm] Pulse Oximetry 90 L 94 L 94 L Oxygen Delivery Me thod Room Air Nasal Cannula Nasal Cannula Oxygen Flow Rate 2 2 Fraction of Inspir ed Oxygen 08/09/24 19:00 08/09/24 19:57 08/09/24 20:28 Temperature 98.1 F 98.1 F Pulse Rate 109 H 103 H 105 H Pulse Rate [Bilate ral] Respiratory Rate 18 19 19 Blood Pressure 141/79 137/73 143/72 Blood Pressure [Le ft Arm] Pulse Oximetry 96 98 98 Oxygen Delivery Me thod Nasal Cannula Nasal Cannula Oxygen Flow Rate 2 2 Fraction of Inspir ed Oxygen 08/09/24 21:00 08/09/24 21:02 08/10/24 00:00 Temperature 98.8 F Pulse Rate Pulse Rate [Bilate ral] 105 H Respiratory Rate 17 Blood Pressure Blood Pressure [Le ft Arm] 116/73 Pulse Oximetry 97 97 96 Oxygen Delivery Me thod Nasal Cannula Nasal Cannula Oxygen Flow Rate 2 Fraction of Inspir ed Oxygen 28 08/10/24 02:23 08/10/24 04:00 08/10/24 08:00 Temperature 98.2 F Pulse Rate Pulse Rate [Bilate ral] 94 H Respiratory Rate 19 Blood Pressure Blood Pressure [Le ft Arm] 106/53 Pulse Oximetry 96 93 L 90 L Oxygen Delivery Me thod Nasal Cannula Oxygen Flow Rate Fraction of Inspir ed Oxygen 08/10/24 08:00 Temperature 98.8 F Pulse Rate Pulse Rate [Bilate ral] 115 H Respiratory Rate 24 Blood Pressure Blood Pressure [Le ft Arm] 124/57 Pulse Oximetry 94 L Oxygen Delivery Me thod Nasal Cannula Oxygen Flow Rate 6 Fraction of Inspir ed Oxygen HENMT: normocephalic, head/scalp atraumatic, hearing grossly normal bilaterally and external ears normal Eyes: PERRL, EOMs intact bilaterally, conjunctivae normal and no scleral icterus Neck/C-Spine: visual inspection normal, trachea midline, cervical spine nontender and cervical full ROM noted Lymph: no lymphadenopathy noted and no lymphedema noted Chest: inspection of chest normal and palpation of chest normal Respiratory: Diminished with intermittent bilateral wheezing Cardiovascular: normal heart rate noted, regular rhythm noted and no gallop Gastrointestinal: abdomen normal to inspection, abdomen soft to palpation and nontender to palpation Genitourinary: no CVA tenderness and bladder normal to palpation Back/Pelvis: spine normal to inspection, no thoracic spine tenderness and no lumbar spine tenderness Extremities: normal to inspection, normal to palpation and no tenderness Neurology: production tech II-XII intact, no movement abnormality noted, no focal motor deficit noted, speech normal and coordination normal Psychiatry: oriented x3, thought process normal, cooperative and affect normal Skin: skin color normal Assessment and Plan Assessment and Plan (1) COPD exacerbation: Assessment and Plan: Rocephin 1gm IV daily Zithromax 500mg IV daily Xopenex 1.25 Q6hrs Pulmicort BID CBC BMP in AM Code(s): J44.1 - Chronic obstructive pulmonary disease with (acute) exacerbation (2) Pneumonia: Qualifiers: Pneumonia type: due to unspecified organism Laterality: bilateral Lung location: lower lobe of lung Qualified Code(s): J18.9 - Pneumonia, unspecified organism Code(s): J18.9 - Pneumonia, unspecified organism Plan Rocephin 1gm IV daily Zithromax 500mg IV daily Xopenex 1.25 Q6hrs Pulmicort BID CBC BMP in AM Results Labs Labs: CBC 08/09/24 08/10/24 Range/Units 17:20 06:19 WBC 23.3 H* 17.7 H (4.3-9.3) K/uL RBC 5.2 4.8 (4.00-5.50) M/uL Hgb 10.9 L 10.5 L (12.5-15.8) gm/dL Hct 35.4 L 34.3 L (35.9-46.7) % Plt Count 342 257 (152-353) K/uL Gran % 89.6 H 86.6 H (47.8-71.3) % Lymph % (Auto) 4.1 L 6.3 L (20.0-43.0) % [place] % (Auto) 5.8 6.6 (3.6-9.8) % Eos % (Auto) 0.0 L 0.1 L (0.4-2.8) % Baso % (Auto) 0.5 0.4 (0.1-0.85) Lymph # (Auto) 1.0 L 1.1 (1.1-3.1) [place] # (Auto) 1.3 1.2 (1.1-3.1) Eos # (Auto) 0.0 0.0 (0.0-0.2) Baso # (Auto) 0.1 0.1 (0.0-0.1) Absolute Gran (auto) 20.9 H 15.3 H (2.3-6.0) CMP 08/09/24 08/10/24 17:20 06:19 Sodium 138 140 Potassium 3.4 L 4.1 Chloride 101.0 106.0 Carbon Dioxide 28 28 BUN 13 9 Creatinine 0.9 0.7 Glucose 190 H 150 H Calcium 9.0 7.9 L Liver Function 08/09/24 08/10/24 Range/Units 17:20 06:19 Total Bilirubin 0.79 0.30 (0.0-1.0) mg/dL AST 14 L 19 (15-37) U/L ALT 20 L 18 L (30-65) U/L Alkaline Phosphatase 150 H 127 (50-136) U/L Albumin 3.5 2.9 L (3.4-5.0) g/dL Urine 08/09/24 17:20 Urine Color Yellow Urine Appearance Hazy Ur Specific [place] 1.020 Urine Protein 1+ Urine Glucose (UA) Normal Imaging Imaging ordered: Chest x-ray Radiologist's impression: [address] [address] XRay Report Signed Patient: Kristi Trevino MR#: [id number] : 1965 Acct:[id number] Age/Sex: 59 / F ADM Date: 08/09/24 Loc: [place] 1115-[address]: Srinivasa Bedolla NP Ordering Physician: Linda Griggs DO Date of Service: 08/10/24 Procedure(s): XR chest 2V Accession Number(s): [id number] cc: Srinivasa Bedolla NP; Linda Griggs DO~ EXAM: XR CHEST 2V HISTORY: pneumoniapneumonia; HX: HTN, COPD COMPARISON: 08/09/2024 TECHNIQUE: PA and lateral FINDINGS: Stable cardiac silhouette. Increased patchy bilateral pulmonary infiltrates, greatest in the left midlung. Stable blunted costophrenic angles. No pneumothorax. IMPRESSION: Increased bilateral pulmonary infiltrates, suspicious for multifocal pneumonia. THIS IS AN ELECTRONICALLY VERIFIED FINAL REPORT 08/10/2024 11:50 AM - Electronically signed by Tan Bellamy MD Dictated By: Tan Bellamy M.D. Signed By: 08/10/24 1150 DD/ 0515 TD/TT: 08/10/24 0515 Biomedical Equipment Technician:
[2024-08-10] MEDS: lisinopriL 20 MG TABLET PO SCH (14:00)
[2024-08-10] MEDS: hydroCHLOROthiazide 25 MG TABLET PO SCH (14:00)
[2024-08-10] MEDS: BENZONATATE 100 MG CAPSULE PO PRN (14:01)
[2024-08-10] MEDS: ONDANSETRON HCL/PF 4 MG/2 ML VIAL INJ PRN (20:05)
[2024-08-10] MEDS: guaiFENesin 600 MG TAB.ER.12H PO SCH (20:05)
[2024-08-11] MEDS: MONTELUKAST SODIUM 10 MG TABLET PO SCH (08:03)
[2024-08-11 08:20] LABS: Basophils #(Absolute) Auto 0.1 (0.0-0.1); Basophils%(Percent) Auto 0.4 (0.1-0.85); Eosinophils#(Absolute)Auto 0.1 (0.0-0.2); Eosinophils%(Percent) Auto 1.1 % (0.4-2.8); Granulocytes % - Auto 83.8 % (47.8-71.3); Granulocytes#(Absolute)- Auto 10.2 (2.3-6.0); Hematocrit 29.5 % (35.9-46.7); Mean Corpuscular Volume 70.9 fl (81.0-93.7); Monocytes #(Absolute)- Auto 0.8 (1.1-3.1); Monocytes %(Percent)- Auto 6.7 % (3.6-9.8); Platelet Count 231 K/uL (152-353); White Blood Count 12.2 K/uL (4.3-9.3)
[2024-08-11] MEDS ORDERED: LISINOPRIL HYDROCHLOROTHIAZIDE PO SCH (09:00)
--- NOTE | 2024-08-11 13:11 | Progress Note ---
Progress Note: Subjective Subjective Interval history: Ms. Trevino complains still of chest pain on inspiration this morning although labs and vitals are stable. Will start incentive spirometerShe is diminished anteriorly with wheezing posterior where she experiences most of her pain. WBC has decreased to 12.2. Exam Exam: Patient in bed in no acute distress. Does report chest pain on inspiration. Constitutional: normal general appearance and no apparent distress Vital Signs - 24 hr 08/10/24 15:28 08/10/24 16:00 08/10/24 20:00 Temperature 98.2 F 99.7 F H Pulse Rate [Bilate ral] 90 89 Respiratory Rate 19 19 Blood Pressure [Le ft Arm] 109/46 107/50 Pulse Oximetry 98 94 L 97 Oxygen Delivery Me thod Nasal Cannula Room Air Oxygen Flow Rate 6 Fraction of Inspir ed Oxygen 08/10/24 20:38 08/10/24 20:38 08/10/24 20:43 Temperature 99.7 F H Pulse Rate [Bilate ral] 89 Respiratory Rate 19 Blood Pressure [Le ft Arm] 107/50 Pulse Oximetry 96 96 97 Oxygen Delivery Me thod Nasal Cannula Room Air Oxygen Flow Rate 2 Fraction of Inspir ed Oxygen 28 08/11/24 00:00 08/11/24 01:56 08/11/24 04:00 Temperature 98.6 F 98.2 F Pulse Rate [Bilate ral] 85 82 Respiratory Rate 16 17 Blood Pressure [Le ft Arm] 115/54 113/59 Pulse Oximetry 96 100 98 Oxygen Delivery Me thod Room Air Room Air Oxygen Flow Rate Fraction of Inspir ed Oxygen 08/11/24 08:00 08/11/24 08:39 08/11/24 12:00 Temperature 99.1 F Pulse Rate [Bilate ral] 93 H 94 H Respiratory Rate 20 19 Blood Pressure [Le ft Arm] 124/57 117/50 Pulse Oximetry 97 99 98 Oxygen Delivery Me thod Nasal Cannula Nasal Cannula Oxygen Flow Rate 6 6 Fraction of Inspir ed Oxygen HENMT: normocephalic, head/scalp atraumatic, hearing grossly normal bilaterally and external ears normal Eyes: PERRL, EOMs intact bilaterally, conjunctivae normal and no scleral icterus Neck/C-Spine: visual inspection normal, trachea midline, cervical spine nontender and cervical full ROM noted Lymph: no lymphadenopathy noted and no lymphedema noted Chest: inspection of chest normal and palpation of chest normal Respiratory: normal respiratory effort, no wheezes (Diminished anterior, with intermittent bilateral wheezing posteriorly) and no use of accessory muscles Cardiovascular: normal heart rate noted, regular rhythm noted and no gallop Gastrointestinal: abdomen normal to inspection, abdomen soft to palpation and nontender to palpation Genitourinary: no CVA tenderness and bladder normal to palpation Back/Pelvis: spine normal to inspection, no thoracic spine tenderness and no lumbar spine tenderness Extremities: normal to inspection, normal to palpation and no tenderness 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, no movement abnormality noted, no focal motor deficit noted, speech normal and coordination normal Psychiatry: oriented x3, thought process normal, cooperative and affect normal Skin: skin color normal Progress Note: Objective Labs Labs: CBC 08/11/24 Range/Units 08:00 WBC 12.2 H (4.3-9.3) K/uL RBC 4.2 (4.00-5.50) M/uL Hgb 8.9 L (12.5-15.8) gm/dL Hct 29.5 L (35.9-46.7) % Plt Count 231 (152-353) K/uL Gran % 83.8 H (47.8-71.3) % Lymph % (Auto) 8.0 L (20.0-43.0) % [place] % (Auto) 6.7 (3.6-9.8) % Eos % (Auto) 1.1 (0.4-2.8) % Baso % (Auto) 0.4 (0.1-0.85) Lymph # (Auto) 1.0 L (1.1-3.1) [place] # (Auto) 0.8 L (1.1-3.1) Eos # (Auto) 0.1 (0.0-0.2) Baso # (Auto) 0.1 (0.0-0.1) Absolute Gran (auto) 10.2 H (2.3-6.0) Urine 08/09/24 17:20 Urine Color Yellow Urine Appearance Hazy Ur Specific [place] 1.020 Urine Protein 1+ Urine Glucose (UA) Normal Imaging Chest x-ray: Radiologist's impression: Patient: Kristi Trevino MR#: [id number] : 1965 Acct:[id number] Age/Sex: 59 / F ADM Date: 08/09/24 Loc: [place] 1115-[address]: Srinivasa Bedolla NP Ordering Physician: Linda Griggs DO Date of Service: 08/09/24 Procedure(s): XR acute abdomen series Accession Number(s): [id number] cc: Srinivasa Bedolla NP; Linda Griggs DO~ EXAM: XR ACUTE ABDOMEN SERIES HISTORY: N/V/D/DyspneaN/V/D/Dyspnea; COMPARISON: 06/17/2024 TECHNIQUE: AP chest; AP abdomen supine and upright FINDINGS: Stable cardiac silhouette. Focal right midlung nodular opacity. Chronic blunted costophrenic angles. No pneumothorax. No abnormally distended bowel loops. No free peritoneal air. IMPRESSION: 1. Focal right midlung nodular opacity, suspicious for infectious infiltrate given change since recent study. Recommend radiographic follow-up to resolution. 2. Nonobstructive bowel gas pattern. THIS IS AN ELECTRONICALLY VERIFIED FINAL REPORT 08/10/2024 8:03 AM - Electronically signed by Tan Bellamy MD Dictated By: Tan Bellamy M.D. Signed By: 08/10/24 0803 DD/ 1717 TD/TT: 08/09/24 1732 Rn Assessment: Patient: Kristi Trevino MR#: [id number] : 1965 Acct:[id number] Age/Sex: 59 / F ADM Date: 08/09/24 Loc: [place] 1115-[address]: Srinivasa Bedolla NP Ordering Physician: Linda Griggs DO Date of Service: 08/10/24 Procedure(s): XR chest 2V Accession Number(s): [id number] cc: Srinivasa Bedolla NP; Linda Griggs DO~ EXAM: XR CHEST 2V HISTORY: pneumoniapneumonia; HX: HTN, COPD COMPARISON: 08/09/2024 TECHNIQUE: PA and lateral FINDINGS: Stable cardiac silhouette. Increased patchy bilateral pulmonary infiltrates, greatest in the left midlung. Stable blunted costophrenic angles. No pneumothorax. IMPRESSION: Increased bilateral pulmonary infiltrates, suspicious for multifocal pneumonia. THIS IS AN ELECTRONICALLY VERIFIED FINAL REPORT 08/10/2024 11:50 AM - Electronically signed by Tan Bellamy MD Dictated By: Tan Bellamy M.D. Signed By: 08/10/24 1150 DD/ 4 TD/TT: 08/10/24514 Rn Assessment: Progress Note: A&P Assessment and Plan (1) COPD exacerbation: Assessment and Plan: Rocephin 1gm IV daily Zithromax 500mg IV daily Xopenex 1.25 Q6hrs Pulmicort BID CBC BMP in AM (2) Pneumonia: Qualifiers: Pneumonia type: due to unspecified organism Laterality: bilateral Lung location: lower lobe of lung Qualified Code(s): J18.9 - Pneumonia, unspecified organism Plan Levofloacin 750mg IV daily zosyn 3.375gm IV q6 D/C rocephin, zithromax Xopenex 1.25 Q6hrs Pulmicort BID CBC BMP in AM Fall Risk Details Rocha Fall Scale Risk Level: Moderate Fall Risk Current Medications: Current Medications Acetaminophen (Acetaminophen 500 Mg Tablet) 1,000 mg PO Q6H PRN PRN Reason: MILD PAIN SCALE 1-4 Last Admin: 08/10/24 20:05 Dose: 1,000 mg Al Hydroxide/Mg Hydroxide (Magnesium Hydroxide 400 Mg/5 Ml Oral.Susp) 400 mg PO DAILY PRN PRN Reason: Constipation Benzonatate (Benzonatate 100 Mg Capsule) 100 mg PO Q6H PRN PRN Reason: Cough Last Admin: 08/10/24 14:01 Dose: 100 mg Budesonide (Budesonide 0.5 Mg/2 Ml Ampul.Neb) 1 mg INH Q12H [facility] Last Admin: 08/11/24 08:38 Dose: 1 mg Docusate Sodium (Docusate Sodium 100 Mg Capsule) 100 mg PO DAILY PRN PRN Reason: Constipation Guaifenesin (Guaifenesin 600 Mg Tab.Er.12h) 600 mg PO BID [facility] Last Admin: 08/11/24 08:04 Dose: 600 mg Hydrochlorothiazide (Hydrochlorothiazide 25 Mg Tablet) 25 mg PO DAILY [facility] Last Admin: 08/11/24 08:04 Dose: 25 mg Sodium Chloride (Sodium Chloride) 1,000 mls @ 100 mls/hr IV CONT [facility] Last Admin: 08/11/24 08:05 Dose: 100 mls/hr Levofloxacin/Dextrose ([id number] 750 Mg/150 Ml) 750 mg in 150 mls @ 75 mls/hr IV Q24H [facility] Piperacillin Sod/Tazobactam (Sod 3.375 gm/ Sodium Chloride) 100 mls @ 200 mls/hr IV Q6H [facility] Levalbuterol HCl (Levalbuterol Hcl 1.25 Mg/3 Ml Vial.Karine) 1.25 mg INH RQ6 [facility] Last Admin: 08/11/24 08:38 Dose: 1.25 mg Lisinopril (Lisinopril 20 Mg Tablet) 20 mg PO DAILY [facility] Last Admin: 08/11/24 08:03 Dose: 20 mg Montelukast Sodium (Montelukast Sodium 10 Mg Tablet) 10 mg PO DAILY [facility] Last Admin: 08/11/24 08:03 Dose: 10 mg Ondansetron HCl (Ondansetron Hcl/Pf 4 Mg/2 Ml Vial) 4 mg INJ Q4H PRN PRN Reason: Nausea And Vomiting Last Admin: 08/11/24 08:04 Dose: 4 mg Pantoprazole Sodium (Pantoprazole Sodium 40 Mg Tablet.) 40 mg PO DAILY [facility] Last Admin: 08/11/24 08:04 Dose: 40 mg Time Spent With Patient Time: Total time spent is greater than 50% in coordination of care (as documented) at patient's floor/unit and/or counseling patient:
[2024-08-11] MEDS: PIPERACILLIN/TAZOBACTAM 3.375 3.375 GM in 0.9 % SODIUM CHLORIDE MB+ 100 ML IV SCH (13:23)
[2024-08-11] MEDS: LEVOFLOXACIN/D5W 750 MG/150 ML 750 MG/150 ML PIGGYBACK IV SCH (13:23)
[2024-08-12 03:47] LABS: Basophils%(Percent) Auto 0.4 (0.1-0.85); Eosinophils#(Absolute)Auto 0.1 (0.0-0.2); Eosinophils%(Percent) Auto 0.7 % (0.4-2.8); Granulocytes % - Auto 80.5 % (47.8-71.3); Granulocytes#(Absolute)- Auto 7.5 (2.3-6.0); Hematocrit 27.4 % (35.9-46.7); Mean Corpuscular Volume 70.4 fl (81.0-93.7); Monocytes #(Absolute)- Auto 0.7 (1.1-3.1); Monocytes %(Percent)- Auto 7.9 % (3.6-9.8); Platelet Count 225 K/uL (152-353); White Blood Count 9.3 K/uL (4.3-9.3)
[2024-08-12] MEDS: FLUTICASONE 50 MCG NASAL 1 SPRAY.SUSP NAS SCH (11:44)
--- NOTE | 2024-08-12 16:19 | Progress Note ---
Progress Note: Subjective Subjective Interval history: Ms. Trevino complains still does not feel well although chest pain gone except on deep breathing, this morning although labs and vitals are stable.WBC continues to improve and patient no longer using accessory muscles this am and will get nurses to get her up and out of bed today Exam Exam: Patient in bed in no acute distress. Does report chest pain on inspiration. Constitutional: abnormal general appearance (disheveled) and (chronically ill), no apparent distress, abnormal body habitus (obese), no limitations and alert Vital Signs - 24 hr 08/11/24 20:00 08/11/24 20:00 08/11/24 20:02 Temperature 98.1 F 98.1 F Pulse Rate [Bilate ral] 93 H 93 H Respiratory Rate 18 18 Blood Pressure Blood Pressure [Le ft Arm] 117/46 117/46 Pulse Oximetry 96 96 96 Oxygen Delivery Me thod Room Air Room Air Oxygen Flow Rate 08/12/24 00:00 08/12/24 02:12 08/12/24 04:00 Temperature 98.3 F 98.0 F Pulse Rate [Bilate ral] 88 90 Respiratory Rate 17 18 Blood Pressure Blood Pressure [Le ft Arm] 110/51 115/57 Pulse Oximetry 97 97 95 Oxygen Delivery Me thod Room Air Room Air Oxygen Flow Rate 08/12/24 07:40 08/12/24 08:00 08/12/24 10:25 Temperature 98.0 F Pulse Rate [Bilate ral] 90 Respiratory Rate 19 Blood Pressure 122/63 Blood Pressure [Le ft Arm] 122/63 Pulse Oximetry 97 95 Oxygen Delivery Me thod Nasal Cannula Oxygen Flow Rate 2 08/12/24 12:00 08/12/24 12:17 08/12/24 13:13 Temperature 98.2 F Pulse Rate [Bilate ral] 82 Respiratory Rate 16 Blood Pressure Blood Pressure [Le ft Arm] 129/71 Pulse Oximetry 97 99 Oxygen Delivery Me thod Nasal Cannula Oxygen Flow Rate 2 HENMT: normocephalic, head/scalp atraumatic, hearing grossly normal bilaterally, external ears normal, oropharynx abnormal, dentition abnormal and gingiva normal Eyes: PERRL, EOMs intact bilaterally, conjunctivae normal, no scleral icterus, papilledema noted and periorbital findings normal Neck/C-Spine: visual inspection normal, trachea midline, cervical spine nontender, cervical full ROM noted, supple, no meningeal signs, thyroid normal and no carotid bruits Lymph: no lymphadenopathy noted and no lymphedema noted Chest: inspection of chest normal and palpation of chest normal Respiratory: breath sounds unequal, normal respiratory effort, auscultation abnormal, wheezing noted (Diminished anterior, with intermittent bilateral wheezing posteriorly) (scattered wheezes), no rales, no retractions and no use of accessory muscles Cardiovascular: normal heart rate noted, regular rhythm noted, no gallop, no rub, no murmur, no JVD, no clicks, peripheral pulses 2+ throughout and no bruits noted Gastrointestinal: abdomen normal to inspection, abdomen soft to palpation, nontender to palpation, normoactive bowel sounds, hepatosplenomegaly noted, no masses, no pulsatile mass and no ascites Genitourinary: no CVA tenderness and bladder normal to palpation Back/Pelvis: spine abnormal to inspection (increased thoracic kyphosis and scoliosis), no thoracic spine tenderness, no lumbar spine tenderness, thoracic spine ROM abnormal and lumbar spine ROM abnormal Extremities: normal to inspection, normal to palpation, no tenderness and full ROM 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, no movement abnormality noted, no focal motor deficit noted, sensory deficit noted, deep tendon reflexes 2+ bilaterally, gait abnormality noted (unable to access), speech normal and coordination normal Psychiatry: mental status grossly normal, oriented x3, thought process abnormality noted, cooperative, affect abnormality noted (labile), psychomotor abnormality noted (slow) and memory normal Feel stressed/tense/nervous/anxious/difficulty sleeping: rather much Life stressors: other (health and breathing) Skin: skin color normal, no rash, no lesions, ecchymosis noted, no wounds, no lacerations, skin turgor normal, no jaundice, no petechiae, no mottling, nails abnormality noted and no alopecia Progress Note: Objective Labs Labs: CBC 08/12/24 Range/Units 03:40 WBC 9.3 (4.3-9.3) K/uL RBC 3.9 L (4.00-5.50) M/uL Hgb 8.5 L (12.5-15.8) gm/dL Hct 27.4 L (35.9-46.7) % Plt Count 225 (152-353) K/uL Gran % 80.5 H (47.8-71.3) % Lymph % (Auto) 10.5 L (20.0-43.0) % [place] % (Auto) 7.9 (3.6-9.8) % Eos % (Auto) 0.7 (0.4-2.8) % Baso % (Auto) 0.4 (0.1-0.85) Lymph # (Auto) 1.0 L (1.1-3.1) [place] # (Auto) 0.7 L (1.1-3.1) Eos # (Auto) 0.1 (0.0-0.2) Baso # (Auto) 0.0 (0.0-0.1) Absolute Gran (auto) 7.5 H (2.3-6.0) Urine 08/09/24 17:20 Urine Color Yellow Urine Appearance Hazy Ur Specific [place] 1.020 Urine Protein 1+ Urine Glucose (UA) Normal Pulse Oximetry Attestation: I have reviewed the pertinent pulse oximetry results. Progress Note: A&P Assessment and Plan (1) COPD exacerbation: Assessment and Plan: Rocephin 1gm IV daily Zithromax 500mg IV daily Xopenex 1.25 Q6hrs Pulmicort BID CBC BMP in AM (2) Pneumonia: Qualifiers: Pneumonia type: due to unspecified organism Laterality: bilateral Lung location: lower lobe of lung Qualified Code(s): J18.9 - Pneumonia, unspecified organism Plan Levofloacin 750mg IV daily zosyn 3.375gm IV q6 D/C rocephin, zithromax Xopenex 1.25 Q6hrs Pulmicort BID CBC BMP in AM Fall Risk Details Rocha Fall Scale Risk Level: Moderate Fall Risk Current Medications: Current Medications Acetaminophen (Acetaminophen 500 Mg Tablet) 1,000 mg PO Q6H PRN PRN Reason: MILD PAIN SCALE 1-4 Last Admin: 08/12/24 13:48 Dose: 1,000 mg Al Hydroxide/Mg Hydroxide (Magnesium Hydroxide 400 Mg/5 Ml Oral.Susp) 400 mg PO DAILY PRN PRN Reason: Constipation Benzonatate (Benzonatate 100 Mg Capsule) 100 mg PO Q6H PRN PRN Reason: Cough Last Admin: 08/10/24 14:01 Dose: 100 mg Budesonide (Budesonide 0.5 Mg/2 Ml Ampul.Neb) 1 mg INH Q12H [facility] Last Admin: 08/12/24 07:40 Dose: 1 mg Docusate Sodium (Docusate Sodium 100 Mg Capsule) 100 mg PO DAILY PRN PRN Reason: Constipation Fluticasone Propionate (Fluticasone 50 Mcg Nasal [address] [place].Susp) 1 spray VINNY BID [facility] Last Admin: 08/12/24 11:44 Dose: 1 spray Guaifenesin (Guaifenesin 600 Mg Tab.Er.12h) 600 mg PO BID [facility] Last Admin: 08/12/24 10:25 Dose: 600 mg Hydrochlorothiazide (Hydrochlorothiazide 25 Mg Tablet) 25 mg PO DAILY [facility] Last Admin: 08/12/24 10:27 Dose: 25 mg Sodium Chloride (Sodium Chloride) 1,000 mls @ 100 mls/hr IV CONT [facility] Last Admin: 08/11/24 20:52 Dose: 100 mls/hr Levofloxacin/Dextrose ([id number] 750 Mg/150 Ml) 750 mg in 150 mls @ 75 mls/hr IV Q24H [facility] Last Admin: 08/12/24 13:35 Dose: 75 mls/hr Piperacillin Sod/Tazobactam (Sod 3.375 gm/ Sodium Chloride) 100 mls @ 200 mls/hr IV Q6H [facility] Last Admin: 08/12/24 14:51 Dose: 100 mls/hr Levalbuterol HCl (Levalbuterol Hcl 1.25 Mg/3 Ml Vial.Neb) 1.25 mg INH RQ6 [facility] Last Admin: 08/12/24 13:12 Dose: 1.25 mg Lisinopril (Lisinopril 20 Mg Tablet) 20 mg PO DAILY [facility] Last Admin: 08/12/24 10:25 Dose: 20 mg Montelukast Sodium (Montelukast Sodium 10 Mg Tablet) 10 mg PO DAILY [facility] Last Admin: 08/12/24 10:26 Dose: 10 mg Ondansetron HCl (Ondansetron Hcl/Pf 4 Mg/2 Ml Vial) 4 mg INJ Q4H PRN PRN Reason: Nausea And Vomiting Last Admin: 08/11/24 08:04 Dose: 4 mg Pantoprazole Sodium (Pantoprazole Sodium 40 Mg Tablet.) 40 mg PO DAILY [facility] Last Admin: 08/12/24 10:25 Dose: 40 mg Time Spent With Patient Time: Total time spent is greater than 50% in coordination of care (as documented) at patient's floor/unit and/or counseling patient: Time with patient: greater than 35 minutes
[2024-08-13 06:06] LABS: Basophils #(Absolute) Auto 0.1 (0.0-0.1); Basophils%(Percent) Auto 0.8 (0.1-0.85); Eosinophils#(Absolute)Auto 0.2 (0.0-0.2); Eosinophils%(Percent) Auto 2.8 % (0.4-2.8); Granulocytes % - Auto 70.5 % (47.8-71.3); Granulocytes#(Absolute)- Auto 5.4 (2.3-6.0); Hematocrit 25.8 % (35.9-46.7); Mean Corpuscular Volume 70.2 fl (81.0-93.7); Monocytes #(Absolute)- Auto 0.6 (1.1-3.1); Monocytes %(Percent)- Auto 7.3 % (3.6-9.8); Platelet Count 227 K/uL (152-353); White Blood Count 7.7 K/uL (4.3-9.3)
[2024-08-13 06:35] LABS: Potassium 3.7 mmol/L (3.6-5.2)
[2024-08-13 11:50] VITALS: BP 123/74; PULSE 75; RESP 19; TEMP 99.3
--- NOTE | 2024-08-13 12:20 | Discharge Summary ---
DS: Providers Provider Date of admission: 08/09/24 19:47 Primary care physician: Lili Sheriff Admitting clinician: Linda Griggs Attending physician on admission: Srinivasa Bedolla Attending physician on discharge: Linda Griggs Discharging clinician: Linda Griggs Anticipated date of discharge: 08/13/24 DS: Diagnosis Discharge Diagnosis (1) COPD exacerbation: (2) Pneumonia: Qualifiers: Laterality: bilateral Lung location: lower lobe of lung Pneumonia type: due to unspecified organism Qualified Code(s): J18.9 - Pneumonia, unspecified organism (3) Hypertensive cardiomegaly with heart failure: (4) Patient's noncompliance with other medical treatment and regimen for other reason: (5) GERD with esophagitis: Qualifiers: Esophagitis bleeding: without hemorrhage Qualified Code(s): K21.00 - Gastro-esophageal reflux disease with esophagitis, without bleeding (6) Cough: Qualifiers: Cough type: chronic Qualified Code(s): R05.3 - Chronic cough (7) On home O2: (8) Asthma: Qualifiers: Asthma severity: severe Asthma complication type: with acute exacerbation Asthma persistence: unspecified Qualified Code(s): J45.901 - Unspecified asthma with (acute) exacerbation (9) Respiratory failure with hypoxia and hypercapnia: Qualifiers: Chronicity: acute on chronic Qualified Code(s): J96.21 - Acute and chronic respiratory failure with hypoxia; J96.22 - Acute and chronic respiratory failure with hypercapnia (10) Hypokalemia: (11) Nausea & vomiting: Qualifiers: Vomiting type: bilious vomiting Qualified Code(s): R11.14 - Bilious vomiting (12) Acute dehydration: DS: Summary Hospital Course Hospital Course: Patient's WBC went from 23.3 on admission on 08/10/2019 25-7.7 on discharge on 08/13/2024. Patient's hemoglobin went from 10.9 on admission down to 8.1 on discharge on 08/13/2024. Potassium on admission on 08/09/2024 was 3.4 on discharge was 3.7 corrected with nutrition and replacement patient's mag went from 1.5 on admission to 1.7 on day of discharge mag was given orally prior to discharge and patient's albumin was normal at 3.5 on admission and by time of discharge was down to 2.5 without any evidence of edema. Patient remained afebrile throughout. CBC did not correct until 411 and even though it had corrected patient still felt too weak to move around and do her ADLs at home where she stayed so was kept overnight again secondary to inability to perform self-care after frequent encouragement moving around in the bed continue medications patient before 12 states she fell like she can do her self care needs at home and provide for herself without difficulty although it may take her longer to perform these duties she felt. Chest x-ray on 411 was worsening which matched the patient's complaint of no improvement in inability to move around take care of herself at home so patient was allowed to stay another night for further observation and treatment to see how chest x-ray patient failed in the a.m. Status at Discharge Functional status at discharge: independent ambulation Overall status at discharge: patient is back to baseline Time Spent with Patient Time attestation: Total time spent providing and/or coordinating discharge services: Time spent: greater than 30 minutes Exam Exam: Patient in bed in no acute distress. Does report chest pain on inspiration. Constitutional: normal general appearance, no apparent distress, abnormal body habitus (obese), limitations noted (physical limitations) and alert Vital Signs - 24 hr 08/12/24 13:13 08/12/24 16:00 08/12/24 20:00 Temperature 98.4 F 98.4 F Pulse Rate [Bilate ral] 84 81 Respiratory Rate 20 22 Blood Pressure Blood Pressure [Le ft Arm] 131/57 126/65 Pulse Oximetry 99 97 98 Oxygen Delivery Me thod Nasal Cannula Room Air Nasal Can nula Oxygen Flow Rate 2 2 08/12/24 20:46 08/12/24 20:46 08/13/24 00:00 Temperature 98.4 F Pulse Rate [Bilate ral] 81 Respiratory Rate 22 Blood Pressure Blood Pressure [Le ft Arm] 126/64 Pulse Oximetry 95 95 98 Oxygen Delivery Me thod Nasal Cannula Nasal Cannula Oxygen Flow Rate 2 2 08/13/24 04:00 08/13/24 07:16 08/13/24 07:57 Temperature 97.8 F 98.4 F Pulse Rate [Bilate ral] 74 84 Respiratory Rate 22 17 Blood Pressure Blood Pressure [Le ft Arm] 117/62 138/73 Pulse Oximetry 96 98 95 Oxygen Delivery Me thod Nasal Cannula Nasal Cannula Oxygen Flow Rate 2 2 08/13/24 08:49 08/13/24 11:49 Temperature 99.3 F Pulse Rate [Bilate ral] 75 Respiratory Rate 19 Blood Pressure 138/73 Blood Pressure [Le ft Arm] 123/74 Pulse Oximetry 97 Oxygen Delivery Me thod Nasal Cannula Oxygen Flow Rate 3 HENMT: normocephalic, head/scalp atraumatic, hearing grossly normal bilaterally, external ears normal, oropharynx normal, dentition abnormal and gi ngiva normal Eyes: PERRL, EOMs intact bilaterally, conjunctivae normal, no scleral icterus, papilledema noted, alignment normal and periorbital findings normal Neck/C-Spine: visual inspection normal, trachea midline, cervical spine nontender, cervical full ROM noted, supple, no meningeal signs, thyroid normal and no carotid bruits Lymph: no lymphadenopathy noted and no lymphedema noted Chest: inspection of chest normal and palpation of chest normal Respiratory: breath sounds unequal, normal respiratory effort, clear to auscultation bilaterally, wheezing noted (improved air movement today and intermittant scattered wheezing) (scattered wheezes), no rales, no retractions and no use of accessory muscles Cardiovascular: normal heart rate noted, regular rhythm noted, no gallop, no rub, no murmur, no JVD, no clicks, peripheral pulses 2+ throughout and no bruits noted Gastrointestinal: abdomen normal to inspection, abdomen soft to palpation, nontender to palpation, normoactive bowel sounds, hepatosplenomegaly noted, no masses, no pulsatile mass and no ascites Genitourinary: no CVA tenderness and bladder normal to palpation Back/Pelvis: spine abnormal to inspection (increased thoracic kyphosis and scoliosis), no thoracic spine tenderness, no lumbar spine tenderness, thoracic spine ROM abnormal and lumbar spine ROM abnormal Extremities: normal to inspection, normal to palpation, no tenderness and full ROM Neurology: medical educator II-XII intact, no movement abnormality noted, no focal motor deficit noted, sensory deficit noted, deep tendon reflexes 2+ bilaterally, gait abnormality noted (unable to access), speech normal and coordination normal Psychiatry: mental status grossly normal, oriented x3, thought process normal, cooperative, affect normal, psychomotor abnormality noted (slow) and memory normal Feel stressed/tense/nervous/anxious/difficulty sleeping: rather much Life stressors: other (health and breathing) Skin: skin color normal, no rash, no lesions, ecchymosis noted, no wounds, no lacerations, skin turgor normal, no jaundice, no petechiae, no mottling, nails abnormality noted and no alopecia DS: Data Data Completed and Pending Labs on day of discharge: Labs from last 24 hours 08/13/24 05:30 WBC 7.7 RBC 3.7 L Hgb 8.1 L Hct 25.8 L MCV 70.2 L MCH 22.1 L MCHC 31.5 L RDW 20.2 H Plt Count 227 MPV 7.9 Gran % 70.5 Lymph % (Auto) 18.6 L [place] % (Auto) 7.3 Eos % (Auto) 2.8 Baso % (Auto) 0.8 Lymph # (Auto) 1.4 [place] # (Auto) 0.6 L Eos # (Auto) 0.2 Baso # (Auto) 0.1 Absolute Gran (auto) 5.4 Sodium 140 Potassium 3.7 Chloride 104.0 Carbon Dioxide 32 Anion Gap 4.0 BUN 5 L Creatinine 0.6 Estimated GFR 102.7 Glucose 124 H Calcium 8.6 Phosphorus 3.4 Magnesium 1.7 L Total Bilirubin 0.37 AST 26 ALT 35 Alkaline Phosphatase 116 Total Protein 6.0 L Albumin 2.5 L Imaging KUB: Attestation: I have reviewed the pertinent imaging results. Radiologist's impression: XR ACUTE ABDOMEN SERIES HISTORY: N/V/D/DyspneaN/V/D/Dyspnea; COMPARISON: 06/17/2024 TECHNIQUE: AP chest; AP abdomen supine and upright FINDINGS: Stable cardiac silhouette. Focal right midlung nodular opacity. Chronic blunted costophrenic angles. No pneumothorax. No abnormally distended bowel loops. No free peritoneal air. IMPRESSION: 1. Focal right midlung nodular opacity, suspicious for infectious infiltrate given change since recent study. Recommend radiographic follow-up to resolution. 2. Nonobstructive bowel gas pattern. Chest x-ray: Attestation: I have reviewed the pertinent imaging results. Radiologist's impression: XR CHEST 2V 08/10/2024 HISTORY: pneumoniapneumonia; HX: HTN, COPD COMPARISON: 08/09/2024 TECHNIQUE: PA and lateral FINDINGS: Stable cardiac silhouette. Increased patchy bilateral pulmonary infiltrates, greatest in the left midlung. Stable blunted costophrenic angles. No pneumothorax. IMPRESSION: Increased bilateral pulmonary infiltrates, suspicious for multifocal pneumonia. Ordering Physician: Linda Griggs DO Date of Service: 08/12/24 Procedure(s): XR chest 2V Accession Number(s): [id number] cc: Srinivasa Bedolla NP; Linda Griggs DO~ EXAM: CHEST 2 VIEWS HISTORY: pneumoniapneumonia; COMPARISON: August 10, 2024 TECHNIQUE: Frontal and lateral views of the chest were submitted for interpretation. FINDINGS: The cardiomediastinal silhouette is within normal limits. Lungs show increasing airspace consolidation in the right lower lobe. Visualized bony structures are within normal limits. IMPRESSION: Increasing airspace consolidation in the right lower lobe favoring pneumonia Discharge Plan Discharge Disposition: Home, Self-Care Condition: Stable Discharge Medications: New pantoprazole [Protonix] 40 mg tablet,delayed release (DR/EC) 40 mg PO DAILY Qty: 30 0RF methylprednisolone [Medrol (Luis)] 4 mg tablets,dose pack See Rx Instructions .ROUTE .COMPLEX Qty: 21 0RF Rx Instructions: for 6 days benzonatate 100 mg Capsule 100 mg PO Q6H PRN (Reason: Cough) Qty: 40 0RF Continued fluticasone propion-salmeterol [Advair Diskus] 250-50 mcg/dose blister with device 1 inh INHALATION BID Patient Comments: USE 1 PUFF BY MOUTH TWICE DAILY albuterol sulfate [Ventolin HFA] 90 mcg/actuation HFA aerosol inhaler 2 puff INHALATION Q4H PRN (Reason: shortness of breath or wheezing) Patient Comments: USE 1 PUFF BY MOUTH EVERY 4 HOURS NEEDED SHORTNESS OF BREATH / COUGH acetaminophen 325 mg Tablet 650 mg PO Q4H PRN (Reason: Pain) Qty: 30 1RF lisinopril-hydrochlorothiazide 20-25 mg tablet 1 tab PO DAILY Patient Comments: TAKE ONE TABLET BY MOUTH ONCE DAILY IN THE MORNING montelukast 10 mg tablet 10 mg PO DAILY Patient Comments: TAKE ONE TABLET BY MOUTH EVERY DAY fluticasone propionate 50 mcg/actuation spray,suspension 1 spray INTRANASAL BID Patient Comments: INSTILL 1 SPRAY INTO EACH NOSTRIL TWICE DAILY ipratropium bromide 21 mcg (0.03 %) spray,non-aerosol 2 spray intranasal BID Qty: 30 0RF Rx Instructions: administer into each nostril Discharge Orders: Discharge Order (Routine); Ordered 08/13/24 Ordered By: Linda Griggs Activity: increase activity as tolerated Diet: advance to your usual diet Interventions: Discharge Assessment Last Done: 08/13/24 12:16 MED/SURG & ICU Observation Charge Sheet Last Done: 08/13/24 12:16 Patient Instructions: Community Acquired Pneumonia (DC) Activity Restrictions/Additional Instructions: patient needs to avoid allergens and extreme temps and contacts and practice good hand washing and wear mask when out and around people. follow up GI medicine and pulmonology as arranged by her PCP and follow up PCP in 2-3 days and prn Forms: Portal/Health Info Access Inst Follow-Ups: Lili Sheriff [Primary Care Provider] - 08/16/24 10:15 am Discharge Date/Time: 08/13/24 13:35
== END 2024-08-13 13:35 | disposition home or self-care (01) | DRG 193 ==
LOC: MS 16:53 → ED 16:53 → OBSVTOIN 19:47 → MS 20:36
PROVIDERS: ADMIT Family Medicine; ATTEND Nurse Practitioner
DX: R11.14 Bilious vomiting; K21.00 Gastro-esophageal reflux disease with esophagitis, without bleeding; E86.0 Dehydration; Z99.81 Dependence on supplemental oxygen; I50.9 Heart failure, unspecified; J44.1 Chronic obstructive pulmonary disease with (acute) exacerbation; I11.0 Hypertensive heart disease with heart failure; Z79.899 Other long term (current) drug therapy; Z91.198 Patient's noncompliance with other medical treatment and regimen for other reason; J45.901 Unspecified asthma with (acute) exacerbation; J96.21 Acute and chronic respiratory failure with hypoxia; J18.9 Pneumonia, unspecified organism; J96.22 Acute and chronic respiratory failure with hypercapnia; E87.6 Hypokalemia; J44.0 Chronic obstructive pulmonary disease with (acute) lower respiratory infection